=== PATIENT | male | born 1930 | race Caucasian/White ===

== ENCOUNTER 2017-07-04 11:18 | Day surgery (SDC) | payer BC ==
[~2017-07-04] VITALS: Ht 170.2 cm; Wt 59.0 kg
--- NOTE | ~2017-07-04 | OP ---
Record Of Operation [facility] [address] [place]. [address] NAME: MAKENZIE BONILLA : [birth year] STATUS : [facility]#: [id number] AGE: 86 ADM/REG DATE : 07/04/17 MR#: [id number] REPORT SERV DATE: 07/10/17 DICTATED BY: BUCK MARTÍNEZ DATE: 07/10/17 REPORT STATUS : Draft TRANSCRIBED BY: KIMBERLY DATE: 07/10/17 DATE OF PROCEDURE: 07/04/2017 CHARACTER ACTOR: None. PREPROCEDURE DIAGNOSES: 1. Bilateral lower extremity peripheral vascular disease. 2. Ulcerations, bilateral lower extremity, toes. PROCEDURE PERFORMED: 1. Ultrasound access, left common femoral artery. 2. Aortogram. 3. Right lower extremity and left lower extremity runoff. 4. Angioplasty of the right anterior tibial artery and dorsalis pedis artery using 2.5 and 3 mm balloons. ANESTHESIA: MAC and local. SPECIMENS: None. ESTIMATED BLOOD LOSS: Minimal. COMPLICATIONS: None. FINDINGS: Include severe infragenicular disease bilaterally, including anterior tibial, peroneal, and posterior tibial occlusions bilaterally. DESCRIPTION OF PROCEDURE: The patient was brought to the operating room and placed in supine position on the operating room table. The patient had MAC anesthetic without complications. Groins were prepped and draped in sterile fashion. Time-out was performed to identify the correct patient, procedure, and site. We began by using the ultrasound to identify the left common femoral artery, it was patent and free of significant disease. We anesthetized the skin and then accessed the artery under ultrasound guidance. Once we had access, a picture was placed on the chart for review, and a wire was advanced into the abdominal aorta. The needle was removed. We placed a 5-Nepalese sheath. Over the wire, we passed the UF catheter, placed it at the L1 vertebral level and performed aortography, demonstrating patency of the aortoiliac segment without flow-limiting stenosis in the aorta, common, or external iliac artery bilaterally. We took the wire and catheter and advanced both to the right external iliac level. We then performed right lower extremity arteriogram, demonstrating patency of the common femoral, profunda femoris, and superficial femoral arteries. The popliteal artery was patent to the below-knee segment. There was patency of the anterior tibial proximally. Peroneal and posterior tibials were occluded. Anterior tibial in the mid segment was occluded. We gave IV heparin and allowed adequate time for circulation. We sized up to a 6-Nepalese sheath and brought it up and over to the aortic bifurcation to the right external iliac level. We brought a wire and catheter down and were able to gain access into the anterior tibial artery. With some effort and downsizing our catheter and Record Of Operation [facility] [id number] [place]. [address] NAME: MAKENZIE BONILLA : [birth year] STATUS : [facility]#: [id number] AGE: 86 ADM/REG DATE : 07/04/17 MR#: [id number] REPORT SERV DATE: 07/10/17 DICTATED BY: BUCK MARTÍNEZ DATE: 07/10/17 REPORT STATUS : Draft TRANSCRIBED BY: KIMBERLY DATE: 07/10/17 wire to a 0.018 system, we were able to cross the anterior tibial and proximal DP occlusions. We got into the foot and confirmed this with an arteriogram. Once across, we used a 2.5 mm balloon to dilate the occlusion, this was 3 minutes at 10 atmospheres. When this was done, we performed repeat arteriogram, which demonstrated improvement, but still some residual stenosis proximally. We brought up a 3 mm balloon and performed repeat angioplasty of this segment, and this gave a much improved result with direct inline flow through the popliteal and anterior tibial into the dorsalis pedis and into the foot. The peroneal and posterior tibials did not appear to be able to be reconstructed. At this time, wires and catheters were withdrawn and we wired out the sheath and brought it over to the left groin. We performed left lower extremity arteriogram, demonstrating gross patency of the vessels into the below-knee segments, and there was severe disease with three-vessel occlusions below the knee. Left common femoral arteriogram demonstrated patency of the artery, good size of the artery, and good location of the sheath. StarClose device was placed with good hemostasis and no complications. The patient tolerated the procedure well. He was awakened and transferred to recovery in stable condition. JC/KIMBERLY Buck Martínez MD / [id number] CC: MD Nathan Mcdermott Frances
[~2017-07-04 11:18] MED LIST: ASAB PO; ATV.5 PO; AVODART PO; AZELASTINE 0.05% OPH; BISR PR; CLARIT10 PO; CORDARONE PO; CYMBALTA30 PO; EXELON9.5T TOP; FLEET ENEMA REP; FLOMAX4 PO; FLONASE NAS; GLUCOPHAGE1000 MG PO; KENALOG T; MAPAP SINUS PO; MICONAZOLE NITRATE; MOMUD PO; MULTI-VIT HP PO; PRIN5 PO; TRAZ50 PO; ZOFRAN4 MG/5 ML PO; [UNRECOGNIZED DRUG - OTHER] PO
[2017-07-04 12:16] LABS: HEMATOCRIT 31.3 % (40.0-51.0); HEMOGLOBIN 10.2 g/dL (13.6-17.8)
[2017-07-04 12:31] LABS: BUN (BLOOD UREA NITROGEN) 51 MG/DL (6-23); CALCIUM, SERUM 9.2 MG/DL (8.5-10.4); CHLORIDE, SERUM 107 MMOL/L (96-112); CO2 (CARBON DIOXIDE) 28 MMOL/L (24-34); CREATININE 2.44 MG/DL (0.70-1.30); GFR AFRICAN AMERICAN 27 ML/MIN (>=60); GFR NON AFRICAN AMERICAN 23 ML/MIN (>=60); GLUCOSE, SERUM 186 MG/DL (60-99); POTASSIUM, SERUM 4.8 MMOL/L (3.5-5.3); SODIUM, SERUM 142 MMOL/L (135-148)
[2017-07-04] MEDS ORDERED: PLAVIX PO (16:27)
== END 2017-07-04 17:52 | disposition home or self-care (01) ==
LOC: SDC 11:18 → SSU1 16:00 → SDC 17:52
PROVIDERS: Student in an Organized Health Care Education/Training Program
PROC: 047P3ZZ Dilation of Right Anterior Tibial Artery, Percutaneous Approach (ICD-10-PCS; principal; 2017-07-04 12:30)
PROC: B44FZZ3 Ultrasonography of Right Lower Extremity Arteries, Intravascular (ICD-10-PCS; 2017-07-04 12:30)
DX: I74.3 Embolism and thrombosis of arteries of the lower extremities (principal); I10 Essential (primary) hypertension; I48.91 Unspecified atrial fibrillation; E11.9 Type 2 diabetes mellitus without complications; F03.90 Unspecified dementia, unspecified severity, without behavioral disturbance, psychotic disturbance, mood disturbance, and anxiety; Z86.73 Personal history of transient ischemic attack (TIA), and cerebral infarction without residual deficits; Z88.0 Allergy status to penicillin; Z88.2 Allergy status to sulfonamides; Z98.41 Cataract extraction status, right eye; Z98.42 Cataract extraction status, left eye; Z98.890 Other specified postprocedural states; Z90.49 Acquired absence of other specified parts of digestive tract
CPT/HCPCS: 37228; 75625; 75716; 76937; 80048; 82962; 85014; 85018; 93005; A9270-GY; C1725; C1769; C1887; C1894; J0690; J3010; Q9967